=== PATIENT | male | born 1985 | race Caucasian/White ===

== ENCOUNTER 2018-05-11 10:45 | Emergency (ER) | payer MEDICAID, OTHER ==
[2018-05-11] MEDS: SUMATRIPTAN 50 MG TAB PO (11:40)
[2018-05-11] MEDS: SUMATRIPTAN 25 MG TAB PO (11:42)
== END 2018-05-11 13:09 | disposition home or self-care (01) ==
LOC: FTE 10:45
DX: R10.32 Left lower quadrant pain (principal)
CPT/HCPCS: 76536; 99284-25

== ENCOUNTER 2018-06-16 01:07 | Emergency (ER) | payer MEDICAID ==
[2018-06-16] MEDS: METOCLOPRAMIDE 10 MG INJ IV (02:27)
[2018-06-16] MEDS: SOD CHLORIDE 0.9% 1,000 ML IV (02:27)
[2018-06-16] MEDS: KETOROLAC 30 MG INJ IV (02:28)
[2018-06-16] MEDS: DIPHENHYDRAMINE 50 MG INJ IV (02:28)
== END 2018-06-16 04:04 | disposition home or self-care (01) ==
LOC: FTE 01:07
DX: G43.909 Migraine, unspecified, not intractable, without status migrainosus (principal)
CPT/HCPCS: 96361; 96374; 96375; 99284-25